=== PATIENT | male | born 1970 | race African-American/Black ===

== ENCOUNTER 2017-04-19 10:29 | Observation (INO) | payer OTHER ==
[2017-04-19 10:35] VITALS: BMI 33.7
--- NOTE | 2017-04-19 11:03 | PDOC ---
History of Present Illness - General History Source: Patient Exam Limitations: No Limitations - History of Present Illness Initial Comments: 04/19/17 11:25 The patient is a 46 year old male with a significant past medical history of hypertension who presents to the ED with progressively worsening chest pain since this morning. The patient reports intermittent chest pain that lasts several seconds before subsiding for several weeks. Patient states the chest pain is now constant . He also reports a new onset of chest pain upon deep inspiration since this morning. Patient reports he recently drove from [place] to [place] last week. Denies fevers or chills. Denies shortness of breath or palpitations. Denies abdominal pain, nausea, vomiting, or diarrhea. Denies headache or dizziness. [place] edema. Denies any other symptoms. <Ben Echavarria - Last Filed: 04/19/17 13:08> <Cami Manzanares - Last Filed: 04/19/17 14:57> - General Chief Complaint: Chest Pain Stated Complaint: CHESTPAIN Time Seen by Provider: 04/19/17 10:39 Past History <Ben Echavarria - Last Filed: 04/19/17 13:08> - Past Medical History HTN: Yes - Psycho/Social/Smoking Cessation Hx Suicidal Ideation: No Smoking History: Never smoked Hx Alcohol Use: No Drug/Substance Use Hx: No <Cami Manzanares - Last Filed: 04/19/17 14:57> - Past Medical History Allergies/Adverse Reactions: Allergies Allergy/AdvReac Type Severity Reaction Status Date / Time No Known Allergies Allergy Verified 04/19/17 10:35 Home Medications: Ambulatory Orders Lisinopril 10 mg PO DAILY 04/19/17 Review of Systems - Review of Systems Able to Perform ROS?: Yes Comments:: 04/19/17 11:25 GENERAL/CONSTITUTIONAL: No fever or chills. No weakness. HEAD, EYES, EARS, NOSE AND THROAT: No change in vision. No ear pain or discharge. No sore throat. CARDIOVASCULAR: + chest pain No shortness of breath. RESPIRATORY: No cough, wheezing, or hemoptysis. GASTROINTESTINAL: No nausea, vomiting, diarrhea or constipation. GENITOURINARY: No dysuria, frequency, or change in urination. MUSCULOSKELETAL: No joint or muscle swelling or pain. No neck or back pain. SKIN: No rash NEUROLOGIC: No headache, vertigo, loss of consciousness, or change in strength/ sensation. ENDOCRINE: No increased thirst. No abnormal weight change. HEMATOLOGIC/LYMPHATIC: No anemia, easy bleeding, or history of blood clots. ALLERGIC/IMMUNOLOGIC: No hives or skin allergy. All Other Systems: Reviewed and Negative <Ben Echavarria - Last Filed: 04/19/17 13:08> *Physical Exam - Vital Signs Last Vital Signs Temp Pulse Resp BP Pulse Ox 98.8 F 62 18 141/102 98 04/19/17 10:57 04/19/17 10:57 04/19/17 10:57 04/19/17 10:57 04/19/17 10:57 - Physical Exam Comments: 04/19/17 11:25 GENERAL: Awake, alert, and fully oriented, in no acute distress HEAD: No signs of trauma EYES: PERRLA, EOMI, sclera anicteric, conjunctiva clear ENT: Auricles normal inspection, hearing grossly normal, nares patent, oropharynx clear without exudates. Moist mucosa NECK: Normal ROM, supple, no lymphadenopathy, JVD, or masses LUNGS: Breath sounds equal, clear to auscultation bilaterally. No wheezes, and no crackles HEART: Regular rate and rhythm, normal S1 and S2, no murmurs, rubs or gallops ABDOMEN: Soft, nontender, normoactive bowel sounds. No guarding, no rebound. No masses EXTREMITIES: Normal range of motion, no edema. No clubbing or cyanosis. No cords, erythema, or tenderness NEUROLOGICAL: Cranial nerves II through XII grossly intact. Normal speech, normal gait SKIN: Warm, Dry, normal turgor, no rashes or lesions noted. <Ben Echavarria - Last Filed: 04/19/17 13:08> - Vital Signs Last Vital Signs Temp Pulse Resp BP Pulse Ox 98.8 F 62 18 141/102 98 04/19/17 10:57 04/19/17 10:57 04/19/17 10:57 04/19/17 10:57 04/19/17 10:57 <Cami Manzanares - Last Filed: 04/19/17 14:57> Heart Score/ECG Review - History History: Moderately suspicious - Electrocardiogram EKG: Normal - Age Age: </= 46 - Risk Factors Risk Factors Heart Score: Yes Hx Hypertension Based on the list above the patient has:: 1-2 risk factors - Troponin Troponin: </= normal limit - Score Heart Score - Total: 2 - ECG Impressions Comment:: EKG read 10:43- sinus kenzie with 1st deg AV block, 58 bpm, no acute ST/T changes <Cami Manzanares - Last Filed: 04/19/17 14:57> ED Treatment Course - LABORATORY CBC & Chemistry Diagram: 04/19/17 11:03 04/19/17 11:03 - ADDITIONAL ORDERS Additional order review: 04/19/17 11:03 RBC 5.01 MCV 88.2 MCHC 34.0 RDW 14.9 MPV 8.2 Neutrophils % 51.0 Lymphocytes % 33.9 Monocytes % 11.4 H Eosinophils % 3.1 Basophils % 0.6 - RADIOLOGY Radiograph Interpretation: 04/19/17 13:08 RAD/CHEST X-RAY PORTABLE Impression: Cardiac silhouette appears mildly prominent. Reported by: Laci Aranda CT/CHEST CTA Impression: No evidence of pulmonary embolism or acute pathology within the chest. Reported by: Jacobo Meredith <Ben Echavarria - Last Filed: 04/19/17 13:08> - LABORATORY CBC & Chemistry Diagram: 04/19/17 11:03 04/19/17 11:03 <Cami Manzanares - Last Filed: 04/19/17 14:57> Medical Decision Making - Medical Decision Making 04/19/17 14:35 Discussed with patient's cellular phone repairer, Dr. Sim ([phone]), who states that he does not regularly follow up for his appointments. He is intermittently noncompliant with his HTN medication, calls the office for refills, then does not follow up. He has not seen him for past 1.5 years. In light of this history , will place on obs for chest pain. <Cami Manzanares - Last Filed: 04/19/17 14:57> *DC/Admit/Observation/Transfer - Attestations Scribe Attestion: 04/19/17 11:25 Documentation prepared by Ben Echavarria, acting as durable medical equipment repairer for Cami Manzanares MD <Ben Echavarria - Last Filed: 04/19/17 13:08> - Discharge Dispostion Admit: Yes <Cami Manzanares - Last Filed: 04/19/17 14:57> Diagnosis at time of Disposition: Chest pain Qualifiers: Chest pain type: unspecified Qualified Code(s): R07.9 - Chest pain, unspecified - Discharge Dispostion Condition at time of disposition: Stable
[2017-04-19 11:18] LABS: BASOPHIL 0.6 % (0-2.0); EOSINOPHIL 3.1 % (0-4.5); MEAN CELL VOLUME 88.2 fl (80-96); MEAN PLT VOLUME 8.2 fl (7.5-11.1); PLATELET COUNT 180 K/MM3 (134-434); RDW 14.9 % (11.9-15.9); WHITE BLOOD COUNT 4.9 K/mm3 (4.0-10.0)
[2017-04-19 11:46] LABS: ALBUMIN 4.2 g/dl (3.4-5.0); ANION GAP 9 (8-16); BILIRUBIN,TOTAL 0.6 mg/dL (0.2-1.0); CALCIUM 9.4 mg/dL (8.5-10.1); CO2 26 mmol/L (21-32); COCKROFT - GAULT 93.76; CREATININE 1.5 mg/dL (0.7-1.3); GLUCOSE,RANDOM 88 mg/dL (74-106); SGOT/AST 31 U/L (15-37); SGPT/ALT 42 U/L (12-78); TOT PROT 7.5 g/dl (6.4-8.2)
[2017-04-19 11:48] LABS: ALK PHOS 60 U/L (45-117); TROPONIN I < 0.02 ng/ml (0.00-0.05)
[2017-04-19 12:02] LABS: INR 1.08 (0.82-1.09); PROTHROMBIN TIME (PATIENT) 11.9 SEC (9.98-11.88)
[2017-04-19] MEDS ORDERED: SODIUM CHLORIDE 1,000 ML IV STA ×2 (12:03→13:27)
[2017-04-19] MEDS ORDERED: ASPIRIN 81 MG CHEWABLE TABLETS PO ONE (14:13)
[2017-04-19] MEDS ORDERED: ASPIRIN 325 MG TABLET ONE (14:22)
[2017-04-19] MEDS ORDERED: ACETAMINOPHEN 325 MG TABLET (FP) PO PRN (15:02)
[2017-04-19] MEDS ORDERED: ONDANSETRON 4 MG/2 ML VIAL IVPB PRN (15:02)
[2017-04-19] MEDS ORDERED: LISINOPRIL 5 MG TABLET (FP) ONE (15:07)
[2017-04-19] MEDS ORDERED: LISINOPRIL 10 MG TABLET (FP) PO SCH (15:15)
--- NOTE | 2017-04-19 15:54 | CON.CARD ---
Consult Consult Specialty:: Cardiology Referred by:: Hospitalist Medicine Reason for Consultation:: Chest pain - History of Present Illness Chief Complaint: Chest pain History of Present Illness: The patient is a 46 year old male with a significant past medical history of hypertension presented to the ED with intermittent left-sided non-exertional, non-positional chest soreness that lasts several seconds before subsiding for several weeks. Chest pain is provoked with deep inspiration, moving torso from side to side and raising left arm. He denies dyspnea, near or true syncope, palpitations, orthopnea, PND, LE edema or change in exercise capacity. - History Source History Provided By: Patient Limitations to Obtaining History: No Limitations - Past Medical History Cardio/Vascular: Yes: HTN - Alcohol/Substance Use Hx Alcohol Use: No - Smoking History Smoking history: Never smoked Home Medications - Allergies Allergies/Adverse Reactions: Allergies Allergy/AdvReac Type Severity Reaction Status Date / Time No Known Allergies Allergy Verified 04/19/17 10:35 - Home Medications Home Medications: Ambulatory Orders Lisinopril 10 mg PO DAILY 04/19/17 Review of Systems - Review of Systems Cardiovascular: reports: Chest Pain Vital Signs: Vital Signs Temperature 98.8 F 04/19/17 10:57 Pulse Rate 62 04/19/17 10:57 Respiratory Rate 18 04/19/17 10:57 Blood Pressure 141/102 04/19/17 10:57 O2 Sat by Pulse Oximetry (%) 98 04/19/17 10:57 Constitutional: Yes: No Distress, Calm Neck: Yes: Supple Respiratory: Yes: Regular, CTA Bilaterally Gastrointestinal: Yes: Normal Bowel Sounds, Soft Cardiovascular: Yes: Regular Rate and Rhythm JVD: No Carotid Bruit: No Heart Sounds: Yes: S1, S2 Edema: No - Other Data Labs, Other Data: INR, PTT INR 1.08 (0.82-1.09) 04/19/17 11:10 SB@58 1st deg AVB, min criteria LVH Echo: Pending Imaging - Results Chest X-ray: Report Reviewed (04/19/17 13:08 RAD/CHEST X-RAY PORTABLE Impression : Cardiac silhouette appears mildly prominent. Reported by: Laci Aranda) Cat Scan: Report Reviewed (CT/CHEST CTA Impression: No evidence of pulmonary embolism or acute pathology within the chest. Reported by: Jacobo Meredith < Ben Echavarria - Last Filed: 04/19/17 13:08>) Problem List - Problems (1) Atypical chest pain Code(s): R07.89 - OTHER CHEST PAIN (2) Hypertensive cardiomyopathy Code(s): I11.9 - HYPERTENSIVE HEART DISEASE WITHOUT HEART FAILURE I43 - CARDIOMYOPATHY IN DISEASES CLASSIFIED ELSEWHERE Qualifiers: Heart failure presence: without heart failure Qualified Code(s): I11.9 - Hypertensive heart disease without heart failure; I43 - Cardiomyopathy in diseases classified elsewhere Assessment/Plan 1. Atypical chest pain exacerbated by movements c/w musculoskeletal etiology 2. HTN/HCVD P:1. Continue Lisinopril 10 qd, analgesia as needed 2. Ruling out for [place], d/c planning in AM, previously noncompliant with f/u with Dr. Robin Sim, may resume upon d/c. 3. Thank you for consultative opportunity
--- NOTE | 2017-04-19 16:30 | HP ---
CHIEF COMPLAINT: chest pain PCP: None Clinical Coordinator: None; previously followed with Dr. Sim HISTORY OF PRESENT ILLNESS: This is a 46 year old male with a history of HTN ( intermittently takes medications) who presented to the ED today complaining of worsening chest pain since this morning. He states that he has been having chest pain intermittently for the past month, which seems to be worse with twisting motions and deep breathing. Today, the pain became constant, prompting him to present to the ED. He denies cough, fevers/chills, shortness of breath, nausea, diaphoresis, calf pain, or any other symptoms. ER course was notable for: (1) EKG: Sinus bradycardia at 58bpm with first degree AVB (2) Troponin <0.02 (3) CTA: negative for PE Recent Travel: [facility] one month ago, [place] by car one week ago Social History: Works in [employer] Smoking: None Alcohol: Occasional Drugs: None Family History: No family history of CAD or early Allergies No Known Allergies Allergy (Verified 04/19/17 10:35) HOME MEDICATIONS: Home Medications Medication Instructions Recorded Lisinopril 10 mg PO DAILY 04/19/17 REVIEW OF SYSTEMS CONSTITUTIONAL: Absent: fever, chills, diaphoresis, generalized weakness, malaise, loss of appetite, weight change HEENT: Absent: rhinorrhea, nasal congestion, throat pain, throat swelling, difficulty swallowing, mouth swelling, ear pain, eye pain, visual changes CARDIOVASCULAR: See HI RESPIRATORY: Absent: cough, shortness of breath, dyspnea with exertion, orthopnea, wheezing, stridor, hemoptysis GASTROINTESTINAL: Absent: abdominal pain, abdominal distension, nausea, vomiting, diarrhea, constipation, melena, hematochezia GENITOURINARY: Absent: dysuria, frequency, urgency, hesitancy, hematuria, flank pain, genital pain MUSCULOSKELETAL: Absent: myalgia, arthralgia, joint swelling, back pain, neck pain SKIN: Absent: rash, itching, pallor HEMATOLOGIC/IMMUNOLOGIC: Absent: easy bleeding, easy bruising, lymphadenopathy, frequent infections ENDOCRINE: Absent: unexplained weight gain, unexplained weight loss, heat intolerance, cold intolerance NEUROLOGIC: Absent: headache, focal weakness or paresthesias, dizziness, unsteady gait, seizure, mental status changes, bladder or bowel incontinence PSYCHIATRIC: Absent: anxiety, depression, suicidal or homicidal ideation, hallucinations. PHYSICAL EXAMINATION Vital Signs - 24 hr 04/19/17 16:08 Temperature 98.3 F Pulse Rate [ 68 Left Apical] Respiratory 18 Rate Blood Pressure 130/97 [Right Arm] O2 Sat by Pulse 97 Oximetry (%) GENERAL: Awake, alert, and fully oriented, in no acute distress. EYES: Pupils equal, round and reactive to light, extraocular movements intact, sclera anicteric, conjunctiva clear. No lid lag. EARS, NOSE, THROAT: Ears normal, nares patent, oropharynx clear without exudates. Moist mucous membranes. NECK: Normal range of motion, supple without lymphadenopathy, JVD, or masses. LUNGS: Breath sounds equal, clear to auscultation bilaterally. No wheezes, and no crackles. No accessory muscle use. Pain is reproducible with twisting movement of torso and palpation of sternum. HEART: Regular rate and rhythm, normal S1 and S2 without murmur, rub or gallop. ABDOMEN: Soft, nontender, not distended, normoactive bowel sounds, no guarding, no rebound, no masses. No hepatomegaly or splenomegaly. MUSCULOSKELETAL: Normal range of motion at all joints. No bony deformities or tenderness. No CVA tenderness. UPPER EXTREMITIES: 2+ pulses, warm, well-perfused. No cyanosis. No clubbing. No peripheral edema. LOWER EXTREMITIES: 2+ pulses, warm, well-perfused. No calf tenderness. No peripheral edema. NEUROLOGICAL: Cranial nerves II-XII intact. Normal speech. Normal gait. PSYCHIATRIC: Cooperative. Good eye contact. Appropriate mood and affect. SKIN: Warm, dry, normal turgor, no rashes or lesions noted, normal capillary refill. ASSESSMENT/PLAN: 46 year old male with chest pain. Problem List - Problem (1) Chest pain Assessment/Plan: -Monitor on telemetry -Serial troponins to rule out CA -Check echo, lipid profile -Cardiology evaluation Code(s): R07.9 - CHEST PAIN, UNSPECIFIED Qualifiers: Chest pain type: unspecified Qualified Code(s): R07.9 - Chest pain, unspecified (2) Hypertension Assessment/Plan: -Hold home Lisinopril given renal insufficiency; unclear if acute or chronic -Start Metoprolol 25mg po bid Code(s): I10 - ESSENTIAL (PRIMARY) HYPERTENSION (3) Renal insufficiency Assessment/Plan: -Hold Lisinopril -Follow Cr -PCP referral for repeat labs on discharge Code(s): N28.9 - DISORDER OF KIDNEY AND URETER, UNSPECIFIED (4) DVT prophylaxis Assessment/Plan: -Moderate risk -Lovenox 40mg sq daily Code(s): [id number] - Visit type - Emergency Visit Emergency Visit: Yes ED Registration Date: 04/19/17 Care time: The patient presented to the Emergency Department on the above date and was hospitalized for further evaluation of their emergent condition. - New Patient This patient is new to me today: Yes Date on this admission: 04/19/17 - Critical Care Critical Care patient: No
[2017-04-19] MEDS: METOPROLOL TARTRATE 25 MG TABLET (FP) PO SCH (21:56)
[2017-04-20 06:07] VITALS: BP 132/85; PULSE 63; TEMP 98.6
[2017-04-20 07:08] LABS: BASOPHIL 0.5 % (0-2.0); EOSINOPHIL 3.9 % (0-4.5); MCH 30.2 pg (25.7-33.7); MCHC 33.9 g/dl (32.0-35.9); MEAN CELL VOLUME 89.2 fl (80-96); MEAN PLT VOLUME 8.4 fl (7.5-11.1); NEUTROPHILS 52.5 % (42.8-82.8); PLATELET COUNT 160 K/MM3 (134-434); RDW 14.9 % (11.9-15.9)
[2017-04-20 07:54] LABS: ALBUMIN 3.5 g/dl (3.4-5.0); ALK PHOS 52 U/L (45-117); ANION GAP 9 (8-16); BILIRUBIN,TOTAL 0.4 mg/dL (0.2-1.0); CALCIUM 8.6 mg/dL (8.5-10.1); CHOLESTEROL 175 mg/dL (50-200); CO2 25 mmol/L (21-32); COCKROFT - GAULT 93.76; CREATININE 1.5 mg/dL (0.7-1.3); GLUCOSE,RANDOM 84 mg/dL (74-106); LDL CHOLESTEROL (ONLY SJRH) 115 mg/dL (5-100); SGOT/AST 24 U/L (15-37); SGPT/ALT 36 U/L (12-78); TOT PROT 6.3 g/dl (6.4-8.2); TROPONIN I < 0.02 ng/ml (0.00-0.05)
--- NOTE | 2017-04-20 09:57 | DS ---
Physical Exam: SUBJECTIVE: Patient seen and examined. states has low pressure CP worse on movement. has been intermittent for the past month. 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 states he goes to the gym regularly and no CP while at the gym with strenuous workout. denies dizzyness, CP, fever, chills, N/V/C/D OBJECTIVE: Vital Signs Period Temp Pulse Resp BP Sys/Kemp Pulse Ox Last 24 Hr 97.6 F-98.6 F 57-82 18-18 130-140/71-97 97-98 PHYSICAL EXAM GENERAL: The patient is awake, alert, and fully oriented, in no acute distress. HEAD: Normal with no signs of trauma. EYES: PERRL, extraocular movements intact, sclera anicteric, conjunctiva clear. ENT: Ears normal, nares patent, oropharynx clear without exudates, moist mucous membranes. NECK: Trachea midline, full range of motion, supple. LUNGS: Breath sounds equal, clear to auscultation bilaterally, no wheezes, no crackles, no accessory muscle use. HEART: Regular rate and rhythm, S1, S2 without murmur, rub or gallop. +chest wall tenderness ABDOMEN: Soft, nontender, nondistended, normoactive bowel sounds, no guarding, no rebound, no hepatosplenomegaly, no masses. EXTREMITIES: 2+ pulses, warm, well-perfused, no edema. NEUROLOGICAL: Cranial nerves II through XII grossly intact. Normal speech, gait not observed. PSYCH: Normal mood, normal affect. SKIN: Warm, dry, normal turgor, no rashes or lesions noted. LABS Laboratory Results - last 24 hr 04/20/17 04/20/17 05:35 05:35 WBC 5.0 RBC 4.60 Hgb 13.9 Hct 41.0 MCV 89.2 MCHC 33.9 RDW 14.9 Plt Count 160 MPV 8.4 Neutrophils % 52.5 Lymphocytes % 32.9 Monocytes % 10.2 Eosinophils % 3.9 Basophils % 0.5 Sodium 141 Potassium 3.8 Chloride 107 Carbon Dioxide 25 Anion Gap 9 BUN 22 H Creatinine 1.5 H Creat Clearance w eGFR 50.61 Random Glucose 84 Calcium 8.6 Magnesium 2.0 Total Bilirubin 0.4 D AST 24 D ALT 36 Alkaline Phosphatase 52 Creatine Kinase 234 D Troponin I < 0.02 Total Protein 6.3 L Albumin 3.5 Triglycerides 112 Cholesterol 175 Total LDL Cholesterol 115 H HDL Cholesterol 46 HOSPITAL COURSE: Date of Admission:04/19/17 Date of Discharge: 04/20/17 admitting diagnosis: atypical CP Pre hospital course 46 year old male with a history of HTN (intermittently takes medications) who presented to the ED today complaining of worsening chest pain since this morning. He states that he has been having chest pain intermittently for the past month, which seems to be worse with twisting motions and deep breathing. Today, the pain became constant, prompting him to present to the ED. He denies cough, fevers/chills, shortness of breath, nausea, diaphoresis, calf pain, or any other symptoms. ER course was notable for: (1) EKG: Sinus bradycardia at 58bpm with first degree AVB (2) CTA: negative for PE, dissection, aneursym Subsequent hospital course Tele observation. sinus kenzie on the monitor (55) remains asymptomatic. cardiac markers neg x2. Echo showing dilated aorta. CTA negative for dissection or aortic aneurysm or PE. +CP on palpation. likely musculoskeletal as pt works out regularly. CATHY noted (Cr 1.5) remained stable on repeat. pt denies hx of kidney dysfucntion. attempted to call Dr Robin Sim office for previous labs but office was closed. Informed pt of results and need for repeat. d/c home on lisinopril. instructed to drink plenty of water. informed need to have labs repeated and may require further cardiac workup. pt verbalized understanding and agreed to plan. Minutes to complete discharge: 40 Discharge Summary Reason For Visit: CHEST PAIN Current Active Problems 1St degree AV block (Acute) Atypical chest pain (Acute) Chest pain (Acute) DVT prophylaxis (Acute) Hypertensive cardiomyopathy (Acute) Renal insufficiency (Acute) Hypertension (Chronic) Condition: Improved - Instructions Diet, Activity, Other Instructions: You were monitored for your chest pain. while you were you were ruled out for having an acute problem, you may require further cardiac testing. Please follow up with your open hearth furnace operator next week for possible further testing. Your kidney function was noted to be elevated (1.5). you need to have this repeated to ensure it does not worsen. Drink plenty of water Avoid salt in your diet If your symptoms worsen return to the ER. Referrals: Robin Sim MD [Non Staff, Medical] - Disposition: HOME - Home Medications Comprehensive Discharge Medication List: Ambulatory Orders Lisinopril 10 mg PO DAILY 04/19/17 This patient is new to me today: Yes Date on this admission: 04/20/17 Emergency Visit: Yes ED Registration Date: 04/19/17 Care time: The patient presented to the Emergency Department on the above date and was hospitalized for further evaluation of their emergent condition. Critical Care patient: No - Discharge Referral Referred to [facility] Med P.C.: No
[2017-04-20] MEDS ORDERED: ENOXAPARIN NA (PORCINE) 40 MG/0.4 ML DISP.SYRIN SQ SCH (10:00)
[2017-04-20] MEDS: METOPROLOL TARTRATE 25 MG TABLET (FP) PO SCH (10:04)
[2017-04-20] MEDS ORDERED: LISINOPRIL 10 MG TABLET (FP) PO STA (10:08)
--- NOTE | 2017-04-20 19:19 | EKG ---
Test Reason : Blood Pressure : / mmHG Vent. Rate : 058 BPM Atrial Rate : 058 BPM P-R Int : 226 ms QRS Dur : 104 ms QT Int : 450 ms P-R-T Axes : 039 -10 -10 degrees QTc Int : 441 ms SINUS BRADYCARDIA WITH 1ST DEGREE A-V BLOCK MINIMAL VOLTAGE CRITERIA FOR LVH, MAY BE NORMAL VARIANT NONSPECIFIC T WAVE ABNORMALITY ABNORMAL ECG NO PREVIOUS ECGS AVAILABLE Confirmed by KELVIN CARDONA, MILLIE ([id number]) on 04/20/2017 7:19:08 PM Referred By: Confirmed By:MILLIE WARREN MD
== END 2017-04-20 11:06 | disposition home or self-care (01) ==
LOC: JER 10:29 → JERBED 14:55 → J4W 17:40
PROVIDERS: ADMIT Internal Medicine; ATTEND Internal Medicine
PROC: 3E0337Z Introduction of Electrolytic and Water Balance Substance into Peripheral Vein, Percutaneous Approach (ICD-10-PCS; principal; 2017-04-19)
DX: R07.89 Other chest pain (principal); I11.9 Hypertensive heart disease without heart failure; N28.9 Disorder of kidney and ureter, unspecified; I44.0 Atrioventricular block, first degree
CPT/HCPCS: 36415; 71010-TC; 71275-TC; 80053; 80061; 82550; 82553; 83036; 83721; 83735; 84484; 85025; 85610; 93005; 93010; 93306-TC; 99285-25; G0378